=== PATIENT | male | born 1950 | race Caucasian/White ===

== ENCOUNTER 2024-01-16 16:56 | Emergency (ER) | payer MEDICARE, SELFPAY ==
--- NOTE | ~2024-01-16 | CT_ITS ---
EXAMINATION: CT ABDOMEN AND PELVIS WITHOUT CONTRAST CLINICAL INFORMATION: Right flank pain. COMPARISON: None available. TECHNIQUE: Multidetector volumetric imaging was performed from the superior aspect of the liver through the pubic symphysis. Sagittal and coronal reformatted images were obtained on the technologist's workstation. This CT examination was performed using dose optimization techniques as appropriate, variously including the following: *Automated exposure control *Adjustment of mA and/or kV according to patient size (this includes techniques or standardized protocols for targeted exams where dose is matched to indication/reason for exam; i.e. extremities or head) *Use of iterative reconstruction technique DLP: 617 mGy-cm FINDINGS: LUNG BASES: There is focal atelectatic changes left lung base. The heart size is normal. LIVER, GALLBLADDER, AND BILIARY TREE: The liver is normal in size, shape, and attenuation. Is a 2.5 cm hypodensity left hepatic lobe measuring cyst density. A 1 cm hypodensity seen in segment IVb measuring same density as cyst. No intrahepatic ductal dilatation seen.. The gallbladder is unremarkable with no evidence of radiopaque gallstones, gallbladder wall thickening, or obvious pericholecystic inflammatory changes. PANCREAS: Unremarkable. SPLEEN: Unremarkable. ADRENAL GLANDS: Unremarkable. 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 The right kidney is slightly enlarged with from hydroureteronephrosis from recently passed 2 mm radiopaque calculi in the bladder. BLADDER: The bladder is nondistended with a soft tissue mass at the base of bladder likely extension of enlarged prostate. There is mild posterior bladder wall thickening measuring 5 mm. GASTROINTESTINAL TRACT: There is scattered stool and gas seen throughout the colon without distention. The small bowel loops are normal caliber except for mild thickening involving posterior segment duodenum with periduodenal fluid collection. No extraluminal air seen.. The stomach is nondistended. Appendix is not visualized. ABDOMINAL WALL: No significant hernia is appreciated. LYMPH NODES: Normal. VASCULAR: There is atherosclerotic changes of abdominal aorta and iliac arteries without aneurysmal dilatation. The infrarenal IVC slightly flattened vertically of unknown etiology. PELVIC VISCERA: Unremarkable. OSSEOUS STRUCTURES: Mild degenerative disc changes and spondylosis from L2-3 through L4-5 disc level. No aggressive lytic or sclerotic process seen. CT/CT abdomen pelvis wo IV con IMPRESSION: 1. Mild right hydroureteronephrosis with recently passed 2 mm radiopaque calculi in the bladder. 2. 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 3. Mild thickening of posterior segment duodenum with periduodenal fluid collection. Question duodenitis, less likely ulcer 4. Mild constipation. 5. Hepatic cysts. 6. Mild posterior bladder wall thickening with a soft tissue mass at the base of bladder likely extension of enlarged prostate. Fleischner guidelines were followed. Electronically signed by: Sung Mahajan MD 01/16/2024 08:37 PM EDT RP
[2024-01-16 17:29] VITALS: BP 176/95; PULSE 65; RESP 16; TEMP 36.5; O2SAT 97; BMI 32.3
[2024-01-16 17:52] LABS: MANUAL DIFF FLAG NO
[2024-01-16 18:14] LABS: Alanine Aminotransferase 37 U/L (0-40); Albumin Level 4.7 g/dL (3.5-5.0); Alkaline Phosphatase 62 U/L (39-117); Anion Gap 15 (12-20); Aspartate Amino Transferase 29 U/L (5-37); Bilirubin Direct 0.2 mg/dL (0.0-0.5); Blood Urea Nitrogen 20 mg/dL (9-16); Calcium 10.3 mg/dL (8.4-10.2); Carbon Dioxide 26 mmol/L (22-29); Chloride 105 mmol/L (96-108); Creatinine Clr Calc Pharmacy 51.7; Estimated Glomerular Filt Rate 52; Glucose Random 127 mg/dL (60-115); Lipase 13 U/L (8-78); Magnesium 1.9 mg/dL (1.6-2.6); Potassium 4.6 mmol/L (3.3-5.1); Sodium 141 mmol/L (135-145); Total Protein 7.7 g/dL (6.5-8.0)
[2024-01-16 18:15] LABS: Basophils Percent Auto 0.3 % (0-2); Eosinophils Percent Auto 0.2 % (0-4); Hematocrit 47.7 % (42.0-52.0); Hemoglobin 17.4 g/dl (14.0-18.0); Imm Gran Abs Auto 0.05 X10*3/uL (0.00-0.03); Imm Gran Pct Auto 0.5 % (0.0-0.4); Lymphocytes Absolute Auto 1.1 X10*3/uL (1.2-4.9); Lymphocytes Percent Auto 11.5 % (20-40); Mean Corpuscular HGB Conc 36.5 g/dl (31.0-36.0); Mean Corpuscular Hemoglobin 31.5 pg (27.0-33.0); Mean Corpuscular Volume 86.4 fL (80.0-98.0); Monocytes Absolute Auto 0.5 X10*3/uL (0.1-1.2); Monocytes Percent Auto 5.2 % (2-11); Neutrophils Absolute Auto 7.9 x10*3/uL (2.0-8.3); Neutrophils Percent Auto 82.3 % (45-73); Platelet Count 142 X10*3/uL (160-400); Red Blood Count 5.52 X10*6/uL (4.60-5.80); Red Cell Distribution Width 12.8 % (11.0-16.0); White Blood Count 9.6 X10*3/uL (4.8-10.8)
--- NOTE | 2024-01-16 21:15 | ED.GENADULT ---
HPI - General Adult General Chief complaint: Abdominal Pain Stated complaint: right side groin to back pain, vomiting Time Seen by Provider: 01/16/24 22:32 Source: patient Mode of arrival: ambulatory Limitations: no limitations History of Present Illness ED Provider: sharon ROSSI narrative: Patient no significant past medical history noticed sudden onset of pain in the right flank radiating to the right lower abdomen earlier today by the time patient had a CT scan pain gone completely been sharp in character with nausea no complaints no hematuria Related Data Allergies Allergy/AdvReac Type Severity Reaction Status Date / Time latex Allergy Mild Hives Uncoded 01/16/24 17:36 tomato juice Allergy Mild Hives Uncoded 01/16/24 17:36 Review of Systems Review of Systems: Yes all other systems are reviewed and are negative [facility] Social History Social History Advance Directives: No Advance Directives Information Provided: No Do you have a plan to hurt others: No Plan Physical Exam ED Vital Signs: Vital Signs - 24 hr 01/16/24 17:29 01/16/24 22:21 01/16/24 23:46 Temperature 97.7 F 97.9 F 97.9 F Pulse Rate 65 75 75 Respiratory Rate 16 17 17 Blood Pressure 176/95 H 168/94 H 168/94 H Pulse Oximetry 97 97 97 Oxygen Delivery Method Room Air Room Air Room Air BMI result Body Mass Index 32.3 Appearance: Alert. Oriented X3. No acute distress. Eyes: No pallor or icterus ENT: Pharynx normal. Oral Mucosa moist Neck: Normal inspection. Neck supple. CVS: Normal heart rate and rhythm. Pulses normal. Respiratory: No respiratory distress. Equal air entry bilateral, no wheezing/rales/rhonchi Abdomen: Soft and nontender. Bowel sounds are present, no mass palpable, mild CVA tenderness Skin: Skin warm and dry. Normal skin color. Normal skin turgor. Extremities: No lower extremity edema. No calf tenderness Neuro: Oriented X 3. Course Course Course Narrative: This is an RME: Additional HPI, ROS, PE not included below will be deferred to primary provider. RME assessment and note performed by: Savana Hart PA-C This is a 73-year-old male who presents emergency department with complaints of right-sided flank pain since 130 this morning. Pain radiates from his right flank into his lower abdomen. No urinary symptoms. Plan: Labs, UA, abdominal CT Medical Decision Making Medical Decision Making [facility] Narrative: Patient with right renal colic with sudden onset of pain CT scan showed small 2 mm stone in the bladder pain has improved likely patient has passed the stone as the cause of the pain Differential Diagnosis Differential Diagnoses: The differential diagnosis associated with the presentation includes UTI/kidney stone Lab Data [facility] Lab Attestation statement: I reviewed the patient's lab results. 01/16/24 17:42 01/16/24 17:42 Labs: Lab Results 01/16/24 01/16/24 Range/Units 17:42 22:56 WBC 9.6 (4.8-10.8) X10*3/uL RBC 5.52 (4.60-5.80) X10*6/uL Hgb 17.4 (14.0-18.0) g/dl Hct 47.7 (42.0-52.0) % MCV 86.4 (80.0-98.0) fL MCH 31.5 (27.0-33.0) pg MCHC 36.5 H (31.0-36.0) g/dl RDW 12.8 (11.0-16.0) % Plt Count 142 L (160-400) X10*3/uL MPV 10.0 (9.4-12.4) fL Immature Gran % (Auto) 0.5 H (0.0-0.4) % Neut % (Auto) 82.3 H (45-73) % Lymph % (Auto) 11.5 L (20-40) % [place] % (Auto) 5.2 (2-11) % Eos % (Auto) 0.2 (0-4) % Baso % (Auto) 0.3 (0-2) % Lymph # (Auto) 1.1 L (1.2-4.9) X10*3/uL [place] # (Auto) 0.5 (0.1-1.2) X10*3/uL Eos # (Auto) 0.0 (0.0-0.4) X10*3/uL Baso # (Auto) 0.0 (0.0-0.2) X10*3/uL Abs Immat Gran (auto) 0.05 H (0.00-0.03) X10*3/uL Absolute Neuts (auto) 7.9 (2.0-8.3) x10*3/uL Absolute Nucleated RBC 0.000 (0.0-0.012) X10*3/uL Nucleated RBC % (auto) 0.0 (0.0-0.2) /100WBC Sodium 141 (135-145) mmol/L Potassium 4.6 (3.3-5.1) mmol/L Chloride 105 (96-108) mmol/L Carbon Dioxide 26 (22-29) mmol/L Anion Gap 15 (12-20) BUN 20 H (9-16) mg/dL Creatinine 1.36 (0.5-1.4) mg/dL Estim Creat Clear Calc 51.7 Estimated GFR 52 Random Glucose 127 H (60-115) mg/dL Calcium 10.3 H (8.4-10.2) mg/dL Magnesium 1.9 (1.6-2.6) mg/dL Total Bilirubin 1.0 (0.0-1.0) mg/dL Direct Bilirubin 0.2 (0.0-0.5) mg/dL AST 29 (5-37) U/L ALT 37 (0-40) U/L Alkaline Phosphatase 62 (39-117) U/L Total Protein 7.7 (6.5-8.0) g/dL Albumin 4.7 (3.5-5.0) g/dL Lipase 13 (8-78) U/L Urine Color Dark Yellow Urine Appearance Cloudy Urine pH 5.0 (5.0-9.0) Ur Specific [place] 1.020 (1.005-1.025) Urine Protein 100 (2+) H (Neg-Trace) mg/dL Urine Glucose (UA) Negative (Negative) mg/dL Urine Ketones Trace (Negative) mg/dL Urine Blood Large (3+) H (Negative) Urine Nitrite Negative (Negative) Ur Leukocyte Esterase Negative (Negative) Urine RBC 11-20 H (0-2) /HPF Urine WBC 0-5 (0-5) /HPF Ur Squamous Epith Cells 0-2 (0-2) /HPF Urine Bacteria None Seen (None Seen) Hyaline Casts 0-2 (0-2) /LPF Discharge Plan Discharge Clinical Impression: Calculus of kidney Patient Disposition: Home, Self-Care Instructions: Kidney Stones (ED), Low Oxalate Diet (ED) Additional Instructions: Drink plenty of fluids You had 2 mm kidney stone on the right side which already passed Tylenol/Motrin for pain Follow up with your PCP Interventions: ED Discharge Assessment Last Done: 01/16/24 23:46 Discharge Date/Time: 01/16/24 23:48 Print Language: Divehi
[2024-01-16 22:21] VITALS: BP 168/94; PULSE 75; RESP 17; TEMP 36.6; O2SAT 97
[2024-01-16 23:11] LABS: Appearance Urine Cloudy; Color Urine Dark Yellow; Glucose Urine UA Negative (Negative); Leukocyte Esterase Urine Negative (Negative); Nitrite Urine Negative (Negative); UMIC TRIGGER UACC YES; Urine Blood Large (3+) (Negative); Urine Ketones Trace mg/dL (Negative); Urine Protein 100 (2+) mg/dL (Neg-Trace)
[2024-01-16 23:13] LABS: Bacteria Urine None Seen (None Seen); Hyaline Casts Urine 0-2 /LPF (0-2); Squamous Epithelial Cell Urine 0-2 /HPF (0-2); WBC Urine 0-5 /HPF (0-5)
[2024-01-16 23:46] VITALS: BP 168/94; PULSE 75; RESP 17; TEMP 36.6; O2SAT 97
== END 2024-01-16 23:48 | disposition home or self-care (01) ==
PROVIDERS: Physician Assistant Medical; Emergency Provider Internal Medicine; PCP Internal Medicine
DX: N20.0 Calculus of kidney (principal); R10.30 Lower abdominal pain, unspecified; Z79.899 Other long term (current) drug therapy
CPT/HCPCS: 36415; 74176; 80048; 80076; 81001; 83690; 83735; 85025; 99283; 99284